=== PATIENT | male | born 1975 | race Caucasian/White ===

== ENCOUNTER 2017-10-07 10:46 | Observation (INO) ==
[2017-10-07] MEDS ORDERED: ASPIRIN 325 MG TABLET PO STA (11:12)
[2017-10-07] MEDS ORDERED: ENOXAPARIN 100 MG/ML SYRINGE SUBCUT STA (11:12)
[2017-10-07] MEDS ORDERED: MORPHINE 4 MG/1 ML VIAL IV STA ×2 (11:12→12:12)
[2017-10-07] MEDS ORDERED: ONDANSETRON 4 MG/2 ML VIAL IV STA (11:12)
[2017-10-07] MEDS: NITROGLYCERIN SL 0.4 MG TABLET SL PRN ×2 (11:25→11:30)
[2017-10-07 11:32] LABS: Basophils % 0.4 % (0.0-0.8); Eosinophils % 0.5 % (0.00-10.9); Hemoglobin 13.9 GM/DL (14.0-18.0); Immature Granulocytes % 0.5 %; Immature Granulocytes Absolute 0.04 #; Lymphocytes # 2.5 10*3/uL (1.4-4.0); Lymphocytes % 29.2 % (21.2-54.2); Mean Corpuscular HGB Conc 34.8 GM/DL (32-36); Mean Corpuscular Hemoglobin 31 PG (27-34); Mean Corpuscular Volume 89.1 FL (87-102); Mean Platelet Volume 10.6 FL (9.6-12.0); Monocytes # 0.5 10*3/uL (0.11-0.8); Monocytes % 6.4 % (1.7-12.7); Neutrophils # 5.3 10*3/uL (1.4-7.4); Platelet Count 216 T/CUMM (130-400); Red Blood Count 4.49 MC/CUMM (3.8-5.5); Red Cell Distribution Width 12.7 % (9.3-17.3); White Blood Count 8.4 T/CUMM (4-12)
[2017-10-07 11:59] LABS: Calcium 9.3 MG/DL (8.5-10.1); Osmolality,Calculated 286.3 MOS/KG (273-304); Potassium 4.1 MMOL/L (3.5-5.1)
[2017-10-07] MEDS ORDERED: MAGNESIUM SULF RIDER 4 GM in PREMIX 1 EACH IV PRN (12:16)
[2017-10-07] MEDS ORDERED: DEXTROSE 50% 25 GM/50 ML VIAL IV PRN (12:16)
[2017-10-07] MEDS ORDERED: GLUCAGON 1 MG VIAL IM PRN (12:16)
[2017-10-07] MEDS ORDERED: MAGNESIUM SULF RIDER 2 GM in PREMIX 1 EACH IV PRN (12:16)
[2017-10-07] MEDS ORDERED: ONDANSETRON 4 MG/2 ML VIAL IV PRN (12:16)
[2017-10-07] MEDS ORDERED: KETOROLAC 30 MG/1 ML VIAL IV STA (12:37)
[2017-10-07] MEDS: ENOXAPARIN 100 MG/ML SYRINGE SUBCUT SCH (13:41)
[2017-10-07 15:34] LABS: Troponin I Only < 0.015 NG/ML (0.00-0.045)
[2017-10-07 15:37] LABS: Calcium 9.1 MG/DL (8.5-10.1); Osmolality,Calculated 280.5 MOS/KG (273-304)
[2017-10-07] MEDS: SODIUM CHLORIDE 0.45% 1,000 ML IV SCH ×2 (15:49→21:03)
[2017-10-07] MEDS: INSULIN LISPRO 100 UNIT/ML SUBCUT SCH ×2 (17:38→21:00)
[2017-10-07] MEDS: NITROGLYCERIN 2% OINT 1 INCH/GM PACK TOP SCH (18:21)
[2017-10-07] MEDS: MORPHINE 4 MG/1 ML VIAL IV PRN ×2 (18:23→23:04)
[2017-10-07] MEDS: METOPROLOL TARTRATE 25 MG TABLET PO SCH (21:01)
[2017-10-07] MEDS: ROSUVASTATIN 20 MG TABLET PO SCH (21:02)
[2017-10-07] MEDS: ZALEPLON 5 MG CAPSULE PO PRN ×2 (21:02→23:05)
[2017-10-08] MEDS: ENOXAPARIN 100 MG/ML SYRINGE SUBCUT SCH ×2 (01:03→12:49)
[2017-10-08] MEDS: NITROGLYCERIN 2% OINT 1 INCH/GM PACK TOP SCH ×4 (01:03→12:02)
[2017-10-08] MEDS: SODIUM CHLORIDE 0.45% 1,000 ML IV SCH ×2 (07:00→12:38)
[2017-10-08] MEDS: INSULIN LISPRO 100 UNIT/ML SUBCUT SCH ×4 (07:41→22:12)
[2017-10-08] MEDS: MORPHINE 4 MG/1 ML VIAL IV PRN ×5 (07:48→21:55)
[2017-10-08] MEDS: METOPROLOL TARTRATE 25 MG TABLET PO SCH ×2 (08:47→22:13)
[2017-10-08] MEDS ORDERED: PANTOPRAZOLE 40 MG TABLET PO SCH (09:00)
[2017-10-08] MEDS: NITROGLYCERIN SL 0.4 MG TABLET SL PRN ×3 (09:47→21:55)
[2017-10-08] MEDS ORDERED: ALUM/MAG/SIMETH/LIDO VISC 1:1 30 ML BOTTLE PO ONE ×2 (10:30→21:59)
[2017-10-08] MEDS: ASPIRIN CHEW 81 MG TABLET PO SCH (10:32)
[2017-10-08] MEDS ORDERED: MAGNESIUM SULF RIDER 2 GM in PREMIX 1 EACH IV PRN (12:28)
[2017-10-08] MEDS ORDERED: POTASSIUM CHLORIDE RIDER 10 MEQ in PREMIX 1 EACH IV PRN (12:28)
[2017-10-08] MEDS: TICAGRELOR 90 MG TABLET PO SCH ×2 (12:28→22:12)
[2017-10-08] MEDS ORDERED: diphenhydrAMINE CAP 25 MG CAPSULE PO ONE (12:30)
[2017-10-08] MEDS ORDERED: DIAZEPAM 5 MG TABLET PO ONE (12:30)
[2017-10-08 13:10] LABS: PT Patient Result 10.4 SECS
[2017-10-08] MEDS: SODIUM CHLORIDE 0.9% 1,000 ML IV SCH ×2 (13:14→20:06)
[2017-10-08] MEDS ORDERED: MIDAZOLAM 2 MG/2 ML VIAL ONE ×2 (13:32→14:03)
[2017-10-08] MEDS ORDERED: LIDOCAINE 1% 20 ML VIAL ONE (13:32)
[2017-10-08] MEDS ORDERED: fentaNYL 100 MCG/2 ML VIAL ONE (13:33)
[2017-10-08] MEDS ORDERED: SERTRALINE 25 MG TABLET PO ONE (14:59)
[2017-10-08] MEDS: GABAPENTIN 300 MG CAPSULE PO SCH ×2 (15:21→22:13)
[2017-10-08] MEDS: HYOSCYAMINE 0.125 MG TABLET SL SCH ×2 (15:21→22:12)
[2017-10-08] MEDS: PANTOPRAZOLE 40 MG TABLET PO SCH ×2 (15:22→22:13)
[2017-10-08] MEDS ORDERED: TRIAMCINOLONE ACETONIDE 40 MG/1 ML VIAL MISC INJ ONE (16:30)
[2017-10-08] MEDS ORDERED: ROPIVACAINE 0.5% 30 ML VIAL MISC INJ ONE (16:30)
[2017-10-08] MEDS ORDERED: MELATONIN 3 MG TABLET PO PRN (18:33)
[2017-10-08] MEDS ORDERED: traZODone 50 MG TABLET PO SCH (21:00)
[2017-10-08] MEDS ORDERED: rOPINIRole 1 MG TABLET PO SCH (21:00)
[2017-10-08] MEDS ORDERED: ASPIRIN 325 MG TABLET ONE (22:00)
[2017-10-08] MEDS: busPIRone 10 MG TABLET PO SCH (22:12)
[2017-10-08] MEDS: ROSUVASTATIN 20 MG TABLET PO SCH (22:12)
[2017-10-08] MEDS ORDERED: ASPIRIN CHEW 81 MG TABLET PO ONE (22:16)
[2017-10-09] MEDS: MORPHINE 4 MG/1 ML VIAL IV PRN (04:00)
[2017-10-09 05:53] LABS: Calcium 8.8 MG/DL (8.5-10.1); Osmolality,Calculated 285.7 MOS/KG (273-304); Potassium 4.3 MMOL/L (3.5-5.1)
[2017-10-09] MEDS: INSULIN LISPRO 100 UNIT/ML SUBCUT SCH ×2 (08:28→12:01)
[2017-10-09] MEDS: ASPIRIN CHEW 81 MG TABLET PO SCH (09:43)
[2017-10-09] MEDS: PANTOPRAZOLE 40 MG TABLET PO SCH (09:43)
[2017-10-09] MEDS: TICAGRELOR 90 MG TABLET PO SCH (09:44)
[2017-10-09] MEDS: HYOSCYAMINE 0.125 MG TABLET SL SCH (09:44)
[2017-10-09] MEDS: busPIRone 10 MG TABLET PO SCH (09:44)
[2017-10-09] MEDS: GABAPENTIN 300 MG CAPSULE PO SCH (09:44)
[2017-10-09] MEDS: METOPROLOL TARTRATE 25 MG TABLET PO SCH (09:44)
[2017-10-09 11:31] LABS: Basophils % 0.3 % (0.0-0.8); Eosinophils % 0.3 % (0.00-10.9); Hemoglobin 13.1 GM/DL (14.0-18.0); Immature Granulocytes % 0.5 %; Immature Granulocytes Absolute 0.04 #; Lymphocytes % 25.3 % (21.2-54.2); Mean Corpuscular HGB Conc 36.4 GM/DL (32-36); Mean Corpuscular Hemoglobin 32 PG (27-34); Mean Platelet Volume 10.8 FL (9.6-12.0); Monocytes % 12.6 % (1.7-12.7); Neutrophils # 4.8 10*3/uL (1.4-7.4); Platelet Count 198 T/CUMM (130-400); Red Blood Count 4.14 MC/CUMM (3.8-5.5); Red Cell Distribution Width 12.4 % (9.3-17.3); White Blood Count 7.9 T/CUMM (4-12)
[2017-10-09] MEDS ORDERED: traZODone 50 MG TABLET PO PRN (13:43)
[2017-10-09 15:14] VITALS: BP 109/68
[2017-10-09] MEDS ORDERED: SERTRALINE 25 MG TABLET PO SCH (21:00)
== END 2017-10-09 15:33 | disposition home or self-care (01) ==
LOC: N.ED 10:46 → N.EDINP 10:46 → N.ICU 13:05
PROVIDERS: ADMIT Internal Medicine Cardiovascular Disease; ATTEND Internal Medicine Cardiovascular Disease
PROC: CLCCHCL (ICD-10-PCS; 2017-10-08 13:45)